=== PATIENT | male | born 2005 | race Caucasian/White ===

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

== ENCOUNTER 2024-02-05 12:05 | Outpatient (RCR) | payer BC, SELFPAY ==
--- NOTE | 2024-02-02 09:46 | URNOTE ---
Entyvio 300mg every 8 weeks has been approved 02/05/2024-02/03/2025 Ref #[id number]
[2024-02-05 12:14] VITALS: BP 115/71; PULSE 106; RESP 20; TEMP 37.1; O2SAT 95
[2024-02-05 13:01] LABS: Basophils Absolute Auto 0.03 K/uL (0.00-0.30); Basophils Percent Auto 0.4 % (0.0-3.0); Eosinophils Percent Auto 7.5 % (0.0-7.0); Hematocrit 40.8 % (37.0-53.0); Hemoglobin* 13.8 gm/dL (13.5-17.5); Immature Granulocytes Abs Auto 0.01 K/uL (0.00-0.30); Immature Granulocytes Pct Auto 0.1 %; Lymphocytes Absolute Auto 1.61 K/uL (0.90-2.90); Lymphocytes Percent Auto 22.5 % (20-44); Mean Corpuscular HGB Conc 34 gm/dL (32-36); Mean Corpuscular Hemoglobin 29 pg (26-34); Mean Corpuscular Volume 87 fL (80-100); Monocytes Percent Auto 9.5 % (0.0-11.0); Platelet Count* 286 K/uL (140-440); Red Blood Count 4.71 m/uL (4.30-5.90); White Blood Count* 7.17 K/uL (4.50-11.00)
[2024-02-05 13:07] LABS: Slide Review Reflex No
[2024-02-05] MEDS: VEDOLIZUMAB 300 MG, TUBING SECONDARY 1 EACH in 0.9 % SODIUM CHLORIDE 250 ml 250 ML 510 MG IVPB (13:08)
[2024-02-05 13:26] LABS: Albumin* 4.6 g/dL (3.3-5.0)
[2024-02-05 13:29] LABS: Alanine Aminotransferase* 22 U/L (4-50); Alkaline Phosphatase* 63 U/L (65-260); Aspartate Amino Transferase* 23 U/L (12-35); Bilirubin Total* 0.4 mg/dL (0.1-1.5); Total Protein* 7.6 g/dL (6.0-8.3)
[2024-02-05] MEDS: SODIUM CHLORIDE 0.9 % (FLUSH) 10 ML SYRINGE IVF (16:25)
[2024-02-05] MEDS: 0.9 % SODIUM CHLORIDE 250 ml IV (16:25)
== END 2024-08-03 23:59 | disposition home or self-care (01) ==
LOC: CCIC 12:05
PROVIDERS: Visit Provider Clinical Nurse Specialist
DX: K51.00 Ulcerative (chronic) pancolitis without complications (principal)
CPT/HCPCS: 36415; 80076; 85025; 96365; J3380; J7050

== ENCOUNTER 2024-07-18 12:09 | Emergency (ER) | payer BC, SELFPAY ==
[2024-07-18 12:12] VITALS: BP 122/73; PULSE 92; RESP 16; TEMP 37.3; O2SAT 97; BMI 26.5
--- NOTE | 2024-07-18 12:48 | ED_ITS ---
HPI - General Adult General Chief complaint: Abdominal Pain Stated complaint: abdominal pain, nausea, hx ulcerative colitis Time Seen by Provider: 07/18/24 12:47 History of Present Illness HPI narrative: mid abd pain that started a few hours ago. hx ulcerative colitis. having liquid bm's with chunks of food denies blood. vomitted x 1. only had water this am. acetaminophen this am with no relief. 18-year-old male identifying female presenting to the emergency department with complaint of a few hours of severe mid abdominal pain. Has had a few episodes of watery partially formed stool though food seems to be still intact. Did vomit once as well but thinks that might have been more related to the pain. No fever. No hematochezia. No hematemesis. Does have a history of ulcerative colitis and has been well controlled with infusions of Entyvio. Has had intermittent flares but minor. This pain seems similar first-time diagnosed. Does not take ibuprofen given diagnosis but did try some acetaminophen without relief. Related Data Home Medications ?Medication ?Instructions ?Recorded ?Confirmed albuterol sulfate 90 mcg/actuation 2 puff inhalation Q2H PRN 07/17/23 07/18/24 aerosol inhaler (Ventolin HFA) estradiol 1 mg tablet (Estrace) 1 mg PO DAILY 09/11/23 07/18/24 Allergies Allergy/AdvReac Type Severity Reaction Status Date / Time azithromycin Allergy Unknown Rash Verified 12/11/23 12:10 Review of Systems Status of ROS: Reports: 6 or more systems reviewed and unremarkable except as noted in History and below [facility] Medical History Colitis ?K52.9 - Noninfective gastroenteritis and colitis, unspecified (ICD-10) Social History Smoking Status: Never smoker Do you use any of these nicotine containing products: None How often do you have a drink containing alcohol: monthly or less AUDIT-C Alcohol total score: 1 Non-prescribed substance use: denies use Exam Narrative: Exam Narrative: Tall. Pleasant. Calm. NAD. Breathing easily. Heart in elevated rate regular rhythm. Abdomen with diminished bowel sounds. Flat. Soft. Mildly tender think to palpation. No peritoneal signs. No masses. Const: Vital Signs, click to edit/add: Vital Signs - 24 hr 07/18/24 12:12 Temperature 99.2 F Pulse Rate [Pulse Oximeter] 92 Respiratory Rate 16 Blood Pressure [Ri ght Upper Arm] 122/73 Pulse Oximetry 97 Oxygen Delivery Me thod Room Air Documenting provider has reviewed patient's vital signs: yes Course Vital Signs Vital signs: Initial Vital Signs Temperature 99.2 F 07/18/24 12:12 Temperature Source Temporal Artery Scan 07/18/24 12:12 Pulse Rate 92 07/18/24 12:12 Respiratory Rate 16 07/18/24 12:12 Blood Pressure 122/73 07/18/24 12:12 Blood Pressure Mean 89 07/18/24 12:12 Pulse Oximetry 97 07/18/24 12:12 Oxygen Delivery Method Room Air 07/18/24 12:12 Vital Signs Temperature 99.2 F 07/18/24 12:12 Pulse Rate 92 07/18/24 12:12 Respiratory Rate 16 07/18/24 12:12 Blood Pressure 122/73 07/18/24 12:12 Pulse Oximetry 97 07/18/24 12:12 Oxygen Delivery Method Room Air 07/18/24 12:12 Temperature 99.2 F 07/18/24 12:12 Pulse Rate 92 07/18/24 12:12 Respiratory Rate 16 07/18/24 12:12 Blood Pressure 122/73 07/18/24 12:12 Pulse Oximetry 97 07/18/24 12:12 Oxygen Delivery Method Room Air 07/18/24 12:12 Medications Administered Medications: Discontinued Medications Generic Name Dose Route Start Last Admin Trade Name Freq PRN Reason Stop Dose Admin Sodium Chloride 500 mls @ 500 mls/hr 07/18/24 12:57 07/18/24 13:32 0.9 % Sodium Chloride 500 Ml IV 07/18/24 13:56 Infused .Q1H ONE Infusion Ketorolac Tromethamine 15 mg 07/18/24 12:57 07/18/24 13:31 Ketorolac 15 Mg/Ml Inj IVP 07/18/24 12:58 15 mg ONCE ONE Administration Morphine Sulfate 4 mg 07/18/24 12:57 07/18/24 13:31 Morphine 4 Mg/Ml Inj IVP 07/18/24 12:58 4 mg ONCE ONE Administration Ondansetron HCl 4 mg 07/18/24 12:57 07/18/24 13:32 Ondansetron 2 Mg/Ml Inj IVP 07/18/24 12:58 4 mg ONCE ONE Administration Medical Decision Making MDM Narrative Medical decision making narrative: I suppose this could be a gastroenteritis on top of inflammatory bowel disorder otherwise certainly could be ulcerative colitis flare. Could be GI variant COVID or influenza. Would offer IV hydration and pain relief. Check for concerning findings in the labs. I am not sure given soft abdomen and if labs look relatively normal that imaging would be necessary. Improved with IV ketorolac and low-dose morphine and bolus of normal saline. Was also given Zofran. Labs are reassuring; only with slightly elevated white count. Discussed options for treatment. Does not usually need abortive medication. More easily available I think would be glucocorticoid. See patient discharge plan for further discussion Medical Records Medical records reviewed: Yes I reviewed the patient's medical records Lab Data Lab results reviewed: Yes I reviewed the patient's lab results Labs: Lab Results 07/18/24 07/18/24 Range/Units 13:10 14:12 WBC 11.39 H (4.50-11.00) K/uL RBC 4.92 (4.30-5.90) m/uL Hgb 14.5 (13.5-17.5) gm/dL Hct 43.8 (37.0-53.0) % MCV 89 (80-100) fL MCH 30 (26-34) pg MCHC 33 (32-36) gm/dL RDW Coeff of Jose 12.1 (11.5-15.5) % Plt Count 231 (140-440) K/uL Neut % (Auto) 79.6 H (42.0-72.0) % Lymph % (Auto) 6.1 L (20-44) % [place] % (Auto) 7.9 (0.0-11.0) % Eos % (Auto) 5.8 (0.0-7.0) % Baso % (Auto) 0.4 (0.0-3.0) % Neut # (Auto) 9.10 H (1.7-7.0) K/uL Lymph # (Auto) 0.70 L (0.90-2.90) K/uL [place] # (Auto) 0.90 (0.00-0.90) K/UL Eos # (Auto) 0.70 H (0.00-0.50) K/uL Baso # (Auto) 0.00 (0.00-0.30) K/uL Abs Immat Gran (auto) 0.00 (0.00-0.30) K/uL Imm/Tot Granulo (auto) 0.2 % ESR 2 (2-15) mm/hr Sodium 138 (135-149) mmol/L Potassium 4.0 (3.6-5.1) mmol/L Chloride 104 (96-114) mmol/L Carbon Dioxide 25 (20-32) mmol/L Anion Gap 9 (7-15) mEq/L BUN 10 (5-24) mg/dL Creatinine 0.8 (0.6-1.2) mg/dL Estimated Creat Clear 158.18 Estimated GFR 131 ml/min Glucose 100 (60-115) mg/dL Calcium 9.2 (8.7-10.8) mg/dL C-Reactive Protein < 0.5 L (0.5-1.0) mg/dL SARS-CoV-2 (PCR) Negative SARS-CoV-2 (Negative) Influenza Type A (PCR) Negative PCR FLU A (Negative) Influenza Type B (PCR) Negative PCR FLU B (Negative) Discharge Plan Discharge Clinical Impression: Abdominal pain, Ulcerative colitis Patient Disposition: Home, Self-Care Condition: Improved Additional Instructions: Focus on hydration. Slow advance of diet over the next couple of days. Diluted juices, soup broths, crackers, toast, rice. Return/be seen for marked increase in persistent abdominal pain, copious diarrhea particularly if becoming bloody, associated fever. I will call you if COVID or influenza testing is positive. At this point recommending prednisone from [facility]. As discussed, per your preference for pain management can take acetaminophen as needed. Take the prednisone as 60 mg today and then 40 mg daily for 6 days. Might be good to call for a follow-up appointment with [facility]. I am anticipating speaking with them yet today and will call you if there is further information or recommended change in therapy. Prescriptions: No Action albuterol sulfate [Ventolin HFA] 90 mcg/actuation HFA aerosol inhaler 2 puff inhalation Q2H PRN estradiol [Estrace] 1 mg tablet 1 mg PO DAILY Follow Up/Referrals: Provider,Not a Local [Primary Care Provider] - Stand Alone Forms: [facility] Info Instructions
[2024-07-18] MEDS: 0.9 % SODIUM CHLORIDE 500 ML 500 ML IV (13:10)
[2024-07-18] MEDS: KETOROLAC 15 MG/ML inj IVP (13:31)
[2024-07-18] MEDS: MORPHINE 4 MG/ML INJ IVP (13:31)
[2024-07-18] MEDS: ONDANSETRON 2 MG/ML inj 4 MG IVP (13:32)
[2024-07-18 13:36] LABS: Basophils Percent Auto 0.4 % (0.0-3.0); Eosinophils Percent Auto 5.8 % (0.0-7.0); Hematocrit 43.8 % (37.0-53.0); Hemoglobin* 14.5 gm/dL (13.5-17.5); Immature Granulocytes Pct Auto 0.2 %; Lymphocytes Percent Auto 6.1 % (20-44); Mean Corpuscular HGB Conc 33 gm/dL (32-36); Mean Corpuscular Hemoglobin 30 pg (26-34); Mean Corpuscular Volume 89 fL (80-100); Monocytes Percent Auto 7.9 % (0.0-11.0); Neutrophils Percent Auto 79.6 % (42.0-72.0); Platelet Count* 231 K/uL (140-440); RDW Coefficient of Variation % 12.1 % (11.5-15.5); Red Blood Count 4.92 m/uL (4.30-5.90); White Blood Count* 11.39 K/uL (4.50-11.00)
[2024-07-18 13:37] LABS: Chloride* 104 mmol/L (96-114)
[2024-07-18 13:38] LABS: Sodium* 138 mmol/L (135-149)
[2024-07-18 13:40] LABS: Creatinine* 0.8 mg/dL (0.6-1.2); Est. Creatinine Clearance* 158.18; Estimated Glomerular Filt Rate 131 ml/min
[2024-07-18 13:41] LABS: Anion Gap 9 mEq/L (7-15); Blood Urea Nitrogen* 10 mg/dL (5-24); Carbon Dioxide* 25 mmol/L (20-32); Glucose* 100 mg/dL (60-115)
[2024-07-18 13:42] LABS: Calcium* 9.2 mg/dL (8.7-10.8)
[2024-07-18 13:49] LABS: C Reactive Protein* < 0.5 mg/dL (0.5-1.0)
[2024-07-18 13:55] LABS: Slide Review Reflex No
[2024-07-18 14:18] LABS: Erythrocyte SedimentationRate* 2 mm/hr (2-15)
--- NOTE | 2024-07-18 15:08 | ED.NURSE ---
Patient endorsed feelings of sadness/being alone for the last two weeks and endorsed thoughts of depression. Denies any SI or HI thoughts on self or others. Patient declined resources offered him for depression. Denies taking any Depression or mental health medications and is not interest in them at this time.
[2024-07-18 15:13] LABS: PCR FLU A Negative PCR FLU A (Negative); PCR FLU B Negative PCR FLU B (Negative); SARS PCR* Negative SARS-CoV-2 (Negative)
== END 2024-07-18 15:11 | disposition home or self-care (01) ==
PROVIDERS: Emergency Provider Family Medicine
DX: R10.9 Unspecified abdominal pain (principal); K51.90 Ulcerative colitis, unspecified, without complications
CPT/HCPCS: 36415; 80048; 85025; 85651; 86140; 87631; 96374; 96375; 99284; J1885; J2270; J2405; J7030